=== PATIENT | male | born 1995 | race Caucasian/White ===

== ENCOUNTER 2024-07-24 07:31 | Emergency (ER) | payer BC, SELFPAY ==
--- NOTE | ~2024-07-24 | XR_ITS ---
EXAMINATION: XR SHOULDER, LEFT CLINICAL INFORMATION: Pain COMPARISON: Earlier study same date TECHNIQUE: AP external rotation, Grashey, scapular Y, and axillary views of the left shoulder. FINDINGS: No dislocation at this time. No fracture or destructive process. XR/XR shoulder LT min 2V IMPRESSION: Reduction of the previously noted anterior subluxation of the humeral head. Electronically signed by: Mack Watters MD 07/24/2024 10:19 AM EDT
--- NOTE | ~2024-07-24 | XR_ITS ---
EXAMINATION: XR SHOULDER, LEFT CLINICAL INFORMATION: Shoulder pain/dislocation COMPARISON: None available. TECHNIQUE: Three views of the left shoulder. FINDINGS: There is anterior/inferior dislocation of the shoulder. No fractures are seen. XR/XR shoulder LT min 2V IMPRESSION: Anterior/inferior dislocation of the shoulder. Electronically signed by: Vinicius Ash MD 07/24/2024 08:18 AM EDT RP
[2024-07-24 07:38] VITALS: BP 149/108; PULSE 116; RESP 18; TEMP 36.7; O2SAT 99
[2024-07-24 07:40] VITALS: BMI 30.2
[2024-07-24] MEDS: Acetaminophen 325 MG TABLET 650 MG PO (07:45)
--- NOTE | 2024-07-24 07:50 | ED_ITS ---
HPI - Extremity Problem General Chief complaint: Extremity Injury, Upper Stated complaint: Shoulder dislocation Time Seen by Provider: 07/24/24 07:49 Source: patient Mode of arrival: ambulatory Limitations: no limitations History of Present Illness ED Provider: DR. Maciel HPI Narrative: 28-year-old male with history of left shoulder dislocation with trying to wear his shirt raising his left arm patient felt his left shoulder popping and dislocated. No numbness, weakness, left hand discoloration, patient had this several times in the past. Related Data Allergies Allergy/AdvReac Type Severity Reaction Status Date / Time No Known Allergies Allergy Verified 07/24/24 07:42 Review of Systems Review of Systems: All other systems are reviewed and are negative Constitutional: Reports as per HPI and Reports no additional constitutional complaints Eyes: Reports as per HPI and Reports no additional eye complaints Reports system reviewed and no additional complaints, except as documented Cardiovascular: Reports as per HPI and Reports no additional cardiovascular complaints Respiratory: Reports as per HPI and Reports no additional respiratory complaints Gastrointestinal: Reports as per HPI and Reports no additional gastrointestinal complaints Genitourinary: Reports no additional female genitourinary complaints Musculoskeletal: Reports no additional musculoskeletal complaints Skin/Breast: Reports system reviewed and no additional complaints, except as docu Psychiatric: Reports no additional psychiatric complaints Endocrine: Reports no additional endocrine complaints Hematologic/Lymphatic: Reports no additional hematologic/lymphatic complaints Allergic/Immunologic: Reports no additional allergic/immunologic complaints Reports system reviewed and no additional complaints, except as documented and Reports Abnormal speech present FOR[facility]LY [facility], [facility] Social History Social History Smoked in Last 30 Days: No Use of substances other than those prescribed or required for medical reasons: Yes Substance Use Type: Marijuana Advance Directives: No Advance Directives Information Provided: Yes Physical Exam Vital Signs: Vital Signs: Last Vital Signs Temp 98.1 F 07/24/24 07:38 Pulse 116 H 07/24/24 07:38 Resp 18 07/24/24 07:38 BP 149/108 H 07/24/24 07:38 Pulse Ox 99 07/24/24 07:38 O2 Del Method Room Air 07/24/24 07:38 BMI result Body Mass Index 30.2 Vital signs have been reviewed and appear to be correct. Blood pressure elevated. Heart rate Elevated. Respiratory rate normal. Temperature normal. Oxygen saturation normal. Appearance: Alert. Oriented X3. No acute distress. Head: Normal external exam. Normocephalic. Atraumatic. No Richardson signs noted. No raccoon eyes noted Eyes: PERRLA. EOMI. Conjunctiva and sclera normal. Eyelids normal. ENT: TM's Normal. Pharynx normal. Uvula midline. Moist mucous membranes. No trismus noted. No drooling noted. No muffled voice noted. Neck: Normal inspection. Neck supple. FROM. No adenopathy. Thyroid Normal. No meningeal signs. No neck mass noted. CVS: Normal heart rate and rhythm. Heart sound normal. No murmurs noted. Pulses normal throughout. Respiratory: No respiratory distress. Painless inspiration. Breath sounds aron l. No wheezes/rales/rhonchi noted. Chest nontender. No accessory muscle usage noted or decreased air movement noted. Abdomen: Soft and nontender. Bowel sounds normal in all 4 quadrants. No distention noted. No organomegaly noted. No visible injury noted. Back: No CVA tenderness. Full range of motion noted. Skin: Skin warm and dry. Normal skin color. Normal skin turgor. No rashes/lesions/lacerations noted. Extremities: Left shoulder: Held in adduction position with painful abduction, anterior fullness of the left shoulder, neurovascularly intact. Neuro: Oriented X 3. Cranial nerve exam: II-XII are grossly intact No motor deficit. No sensory deficit. Reflexes normal. Course Reevaluation(s) Reevaluation #1: Left shoulder dislocation. S/p shoulder reduction needed no conscious sedation patient tolerated the procedure well. Time: 08:28 Medications Administered Discontinued Medications Generic Name Dose Route Start Last Admin Trade Name Freq PRN Reason Stop Dose Admin Acetaminophen 650 mg 07/24/24 07:42 07/24/24 07:45 Acetaminophen 325 Mg Tablet PO 07/24/24 07:43 650 mg ONCE ONE Administration Medical Decision Making Differential Diagnosis Differential Diagnoses: The differential diagnosis associated with the presentation includes ( Shoulder fracture, shoulder dislocation, shoulder sprain.) Admission/Observation Consideration of admission/observation: Escalation of care including admission/observation considered Procedures Orthopedic Joint Reduction Joint #1: Side: left Joint Reduction Location: shoulder Shoulder Technique Used (if applicable): external rotation Post-reduction neuro exam: intact Post-reduction vascular: intact Post Reduction X-Ray Obtained: Yes Post Reduction X-Ray Results: reduced Splint Applied: Yes Patient Tolerated Procedure: well Discharge Plan Discharge Clinical Impression: Closed dislocation of left shoulder Patient Disposition: Home, Self-Care Instructions: Shoulder Dislocation (ED) Referrals: Aldo Mayo MD [Physician] - Megha Pulido MD [Primary Care Provider] - Print Language: Iraqi
--- NOTE | 2024-07-24 09:06 | PC.NURSE ---
Patient declined sling, states has many at home. Reports no longer has pain after shoulder was put back in place by
[2024-07-24 09:07] VITALS: BP 140/89; PULSE 82; RESP 18; TEMP 36.7; O2SAT 98
== END 2024-07-24 09:07 | disposition home or self-care (01) ==
PROVIDERS: Emergency Provider Emergency Medicine; PCP Internal Medicine
DX: S43.005A Unspecified dislocation of left shoulder joint, initial encounter (principal); M25.512 Pain in left shoulder; X58.XXXA Exposure to other specified factors, initial encounter; Y93.89 Activity, other specified; Y92.89 Other specified places as the place of occurrence of the external cause; Y99.8 Other external cause status
CPT/HCPCS: 73030; 99284